=== PATIENT | female | born 1950 | race Caucasian/White ===

== ENCOUNTER 2017-03-28 18:22 | Emergency (ER) | payer MEDICARE, MEDICAID ==
[2017-03-28 19:38] VITALS: BP 146/63
--- NOTE | 2017-03-28 20:06 | UC ---
UC General HPI - HPI Summary HPI Summary: woke up this morning with rash on the right side of her neck rash feels like pressure but not painful and slightly itchy rash feels swollen today she has had some vision changes in her right eye- feels like her vision is blurry, feels slightly itchy hx of cataract surgery in right eye denies any drainage from eye , denies eye pain sees Dr Rossi complaint of intermittent headaches on the right side of head yesterday taking methotrexate for rheumotoid arthritis- missed her shot this week more fatigued than usual d/t traveling denies fever hasn't taken any medications today - History of Current Complaint Chief Complaint: UCSkin Stated Complaint: RASH ON NECK Time Seen by Provider: 03/28/17 19:52 Hx Obtained From: Patient - Allergy/Home Medications Allergies/Adverse Reactions: Allergies Allergy/AdvReac Type Severity Reaction Status Date / Time Diphenhydramine Allergy Swelling Verified 06/11/16 09:58 [From Benadryl] Of Face,Lips,& Throat Iodine Allergy Anaphylatic Verified 08/30/15 15:44 Shock Shellfish Allergy Allergy Anaphylatic Verified 08/30/15 15:44 Shock Sulfa Antibiotics Allergy Anaphylatic Verified 08/30/15 15:44 Shock Home Medications: Home Medications Diltiazem TAB* [Cardizem 30 MG Tab*] 30 mg PO DAILY 03/28/17 [History Confirmed 03/28/17] Nebivolol TAB (NF) [Bystolic TAB (NF)] 2.5 mg PO DAILY 03/28/17 [History Confirmed 03/28/17] PMH/Surg Hx/FS Hx/Imm Hx Previously Healthy: No Endocrine History: Diabetes Cardiovascular History: Atrial Fibrillation GI/ History: Gastroesophageal Reflux Neurological History: Migraine - Surgical History Surgical History: Yes Surgery Procedure, Year, and Place: left eye with implant. hands. R breast- non-cancerous. hysterectomy-Complete. bladder repair. knee and ankle surgery - Family History Known Family History: Negative: Cardiac Disease, Hypertension, Diabetes - Social History Occupation: Retired Lives: With Family Alcohol Use: None Substance Use Type: None Smoking Status (MU): Never Smoked Tobacco Review of Systems Constitutional: Negative Skin: Rash Eyes: Blurred Vision, Drainage ENT: Negative Respiratory: Negative Cardiovascular: Negative Gastrointestinal: Negative Genitourinary: Negative Motor: Negative Neurovascular: Negative Musculoskeletal: Negative Neurological: Headache Psychological: Negative All Other Systems Reviewed And Are Negative: Yes Physical Exam Triage Information Reviewed: Yes Appearance: No Pain Distress, Well-Nourished, Obese Vital Signs: Initial Vital Signs Temp 97.8 F 03/28/17 19:32 Pulse 71 03/28/17 19:32 Resp 16 03/28/17 19:32 BP 146/63 03/28/17 19:32 Pulse Ox 98 03/28/17 19:32 Vital Signs Reviewed: Yes Eyes: Positive: Conjunctiva Clear ENT: Positive: Pharynx normal, Other: - no tednress ovr temporal arteries. Negative: Nasal congestion, Tonsillar swelling, Tonsillar exudate Dental: Positive: Cervical Lymphadenopathy - right side Neck: Positive: Supple Respiratory: Positive: Lungs clear, Normal breath sounds, No respiratory distress, No accessory muscle use Cardiovascular: Positive: RRR, No Murmur, Pulses Normal Abdomen Description: Positive: Nontender, Soft Bowel Sounds: Positive: Present Musculoskeletal: Positive: No Edema Neurological: Positive: Alert, Other: - CN ll-[id number] normal, no focal deficits Psychological Exam: Normal Skin: Positive: rashes - right side of neck - 4 erythematous areas right side of neck Course/Dx - Course Course Of Treatment: exam completed. rash appears to be insect bites. right eye appears to be allergic conjunctivitis- will followup with Dr Rossi on Friday. headache resolved. no indication of temporal arteritis, no neuro deficits. discussed s/s of when to seek emergent care and she states understanding - Differential Dx - Multi-Symptom Provider Diagnoses: insect bites. aleergic conjunctivitis - Physician Notifications Discussed Patient Care With: Dr Thompson Time Discussed With Above Provider: 20:47 Discharge - Discharge Plan Condition: Stable Disposition: HOME Patient Education Materials: Insect Bite or Sting (ED), Conjunctivitis (ED) Referrals: Sherron Mendieta MD [Primary Care Provider] - Joyce Rossi MD [Medical Doctor] - Additional Instructions: Increase fluids and rest Please review your discharge instructions. please call Dr Rossi on [place] for further evalution I f you have any chnage in vision or eye pain please proceed to the emergency department for further evaluation If your symptoms do not improve please call your primary care provider or return to urgent care.
== END 2017-03-28 20:59 | disposition home or self-care (01) ==
LOC: UCCORT 18:22
DX: T14.8 Other injury of unspecified body region (principal); W57.XXXA Bitten or stung by nonvenomous insect and other nonvenomous arthropods, initial encounter; Y92.9 Unspecified place or not applicable; H10.11 Acute atopic conjunctivitis, right eye; I48.91 Unspecified atrial fibrillation; K21.9 Gastro-esophageal reflux disease without esophagitis; Z88.2 Allergy status to sulfonamides; M06.9 Rheumatoid arthritis, unspecified
CPT/HCPCS: 99212; G0463

== ENCOUNTER 2020-07-06 10:43 | Inpatient (IN) ==
[~2020-07-06 10:43] MED LIST: Buffered Lidocaine 1% SYRIN 1 ml INTRADERM ONE; Lactated Ringers 1000 ml BAG 1,000 ML IV SCH
[2020-07-06] MEDS ORDERED: ceFAZolin 2 GM PREMIX 2 GM/50 ML BAG ONE (11:33)
[2020-07-06] MEDS ORDERED: fentaNYL 250 mcg/5 ml 50 MCG/ML 5 ml VIAL (250 MCG) ONE (12:49)
[2020-07-06] MEDS ORDERED: Midazolam 2 mg/2 ml VIAL 1 mg/ml 2 ml VIAL (2 mg) ONE ×2 (12:49→13:48)
[2020-07-06] MEDS ORDERED: Lidocaine 2% PF 5 ML VIAL ONE (12:50)
[2020-07-06] MEDS ORDERED: fentaNYL 100 mcg/2 ml 50 MCG/ML VIAL ONE (12:52)
[2020-07-06] MEDS ORDERED: ROPIVACAINE 5 MG/ML 30 ML BTL (0.5%) ONE ×2 (12:58→13:09)
[2020-07-06] MEDS ORDERED: Bupivacaine 0.5% SDV PF 30ML VIAL ONE (13:29)
[2020-07-06] MEDS ORDERED: Ondansetron 4 mg VIAL 2 MG/ML 2 ml VIAL ONE (13:49)
[2020-07-06] MEDS ORDERED: diPHENhydraMINE 25 mg TAB PO PRN (14:07)
[2020-07-06] MEDS ORDERED: Ondansetron ODT 4 mg TAB 4 MG TAB PO PRN (14:07)
[2020-07-06] MEDS ORDERED: diPHENhydraMINE IV 50 MG/ML 1 ml VIAL (BENADRYL) IV PRN (14:07)
[2020-07-06] MEDS ORDERED: Lactulose 30 ml UDC PO PRN (14:07)
[2020-07-06] MEDS ORDERED: Magnesium Hydroxide LIQ 30 ML UDC PO PRN (14:07)
[2020-07-06] MEDS ORDERED: Rocuronium 50 mg VIAL 10 mg/ml 5 ml VIAL (50 mg) ONE (14:20)
[2020-07-06] MEDS ORDERED: EPHEDrine (Pressors) 50 MG/ML VIAL ONE ×2 (14:54→16:42)
[2020-07-06] MEDS ORDERED: ceFAZolin 1 GM ADVAN 1 GM in NS 0.9% 50 ML 50 ML IVPB SCH (15:00)
[2020-07-06] MEDS ORDERED: Lactated Ringers 1000 ml BAG 1,000 ML IV SCH (15:00)
[2020-07-06] MEDS ORDERED: HYDROmorphone 1 MG/1 ML SYRINGE ONE ×2 (15:06→17:43)
[2020-07-06] MEDS ORDERED: Naloxone 0.4 mg VIAL 0.4 mg/ml 1 ml VIAL IV PRN (16:19)
[2020-07-06] MEDS ORDERED: Prochlorperazine 5 mg/ml 2 ml VIAL (10 mg) IV PRN (16:19)
[2020-07-06] MEDS ORDERED: Sterile Water for Inj 10 ML ONE (16:42)
[2020-07-06] MEDS: HYDROmorphone 1 MG/1 ML SYRINGE IV PRN ×2 (17:45→17:56)
[2020-07-06] MEDS ORDERED: Prochlorperazine 5 mg/ml 2 ml VIAL (10 mg) ONE (18:44)
[2020-07-06] MEDS: oxyCODONE/Acetamin 5/325 mg TAB PO PRN (22:05)
[2020-07-06] MEDS: Magnesium Hydroxide LIQ 30 ML UDC PO SCH (22:05)
[2020-07-06] MEDS: Ondansetron 4 mg VIAL 2 MG/ML 2 ml VIAL IV PRN (22:06)
[2020-07-06] MEDS: ceFAZolin 1 GM ADVAN 1 GM in NS 0.9% 50 ML 50 ML IVPB SCH (23:53)
[2020-07-07] MEDS: ceFAZolin 1 GM ADVAN 1 GM in NS 0.9% 50 ML 50 ML IVPB SCH ×2 (08:03→15:28)
[2020-07-07] MEDS: Ondansetron 4 mg VIAL 2 MG/ML 2 ml VIAL IV PRN ×2 (08:46→14:50)
[2020-07-07] MEDS ORDERED: Potassium Chlor 20 meq TAB.ER PO SCH (09:00)
[2020-07-07] MEDS ORDERED: Nebivolol 2.5 mg TAB (NF) PO SCH (09:00)
[2020-07-07] MEDS ORDERED: Insulin ISOPH/REG 70/30 SUBCUT SCH ×2 (09:00→22:00)
[2020-07-07] MEDS ORDERED: Vitamin THERAPEUTIC TAB PO SCH (09:00)
[2020-07-07] MEDS ORDERED: FEBUXOSTAT 80 MG PO SCH (09:00)
[2020-07-07 09:01] LABS: Hematocrit 29 % (35-47); Hemoglobin 10.2 g/dL (12.0-16.0); Mean Platelet Volume 8.9 fL (7.4-10.4); Platelet Count 138 10^3/uL (150-450)
[2020-07-07] MEDS: oxyCODONE/Acetamin 5/325 mg TAB PO PRN ×2 (09:35→13:33)
[2020-07-07] MEDS: Magnesium Hydroxide LIQ 30 ML UDC PO SCH (09:56)
[2020-07-07 11:15] VITALS: BP 140/43
[2020-07-10] MEDS ORDERED: Scopolamine PATCH Remove NOTE PATCH OFF SCH (17:00)
== END 2020-07-07 18:48 | disposition home health service (06) | DRG 470 ==
LOC: AA 10:43 → SSU 21:00
PROVIDERS: ADMIT Orthopaedic Surgery Adult Reconstructive Orthopaedic Surgery; ATTEND Orthopaedic Surgery Adult Reconstructive Orthopaedic Surgery

== ENCOUNTER 2024-01-29 17:02 | Inpatient (IN) ==
[2024-01-29] MEDS: Acetaminophen IV 1 GM/100ML 1,000 MG/100 ML BAG IV ONE (17:45)
[2024-01-30] MEDS ORDERED: Gabapentin 600 mg TAB (NF) PO ONE (01:30)
[2024-01-30] MEDS ORDERED: Dextrose 50% Syringe 50 ml 25 GM/50 ML SYRINGE IV PUSH PRN (01:33)
[2024-01-30 03:23] LABS: ABS Eosinophils 0.1 10^3/uL (0.0-0.5); ABS Lymphocytes 0.9 10^3/uL (1.0-4.8); ABS Monocytes 0.6 10^3/uL (0.0-0.9); ABS Neutrophils 4.6 10^3/uL (1.5-7.6); Eosinophil % 1.9 %; Hematocrit 30.5 % (35-45); Hemoglobin 10.4 g/dL (11.5-14.3); Lymphocyte % 13.8 %; Mean Corpuscular Hemoglobin 29.2 pg (27-33); Mean Corpuscular Hgb Conc 33.9 g/dL (31-36); Mean Corpuscular Volume 86.1 fL (80-97); Mean Platelet Volume 8.7 fL (7.5-11.2); Platelet Count 145 10^3/uL (150-450); Red Blood Count 3.54 10^6/uL (3.63-4.92); Red Cell Distribution Width 14.7 % (12-17); White Blood Count 6.3 10^3/uL (3.8-11.8)
[2024-01-30 04:24] LABS: C Reactive Protein 5.45 mg/L (<8.01); Calcium 8.3 mg/dL (8.6-10.3); Creatinine, Serum 0.88 mg/dL (0.51-0.95); Magnesium 1.9 mg/dL (1.9-2.7); eGFR CKD-EPI 68.9 (>60)
[2024-01-30] MEDS ORDERED: Polyethylene Glycol 3350 17 GM PACKET PO PRN (09:06)
[2024-01-30] MEDS: Enoxaparin 40 MG/0.4 ML SYR SUBCUT SCH (11:49)
[2024-01-30] MEDS: Lidocaine PATCH 5% PATCH TRANSDERM SCH (15:25)
[2024-01-30] MEDS: methylPREDNISolone SOD SUCC 125 mg 2 ML VIAL IV ONE (15:25)
[2024-01-30] MEDS ORDERED: Gabapentin 600 mg TAB (NF) PO SCH (21:00)
[2024-01-30] MEDS: Insulin ISOPH/REG 70/30 SUBCUT SCH (21:10)
[2024-01-31] MEDS: Insulin ISOPH/REG 70/30 SUBCUT SCH (08:48)
[2024-01-31] MEDS: CMC:Febuxostat 40 mg TAB (NF) PO SCH (09:13)
[2024-01-31] MEDS: Morphine 4 MG/ML VIAL (1 ml) IV PRN (20:53)
[2024-02-01] MEDS: Senna TAB 8.6 mg TAB PO PRN (02:11)
[2024-02-01 13:31] LABS: ABS Lymphocytes 0.6 10^3/uL (1.0-4.8); ABS Monocytes 0.6 10^3/uL (0.0-0.9); ABS Neutrophils 10.8 10^3/uL (1.5-7.6); ABS Nucleated RBC 0.01 10^3/ul; Eosinophil % 0.4 %; Hematocrit 31.2 % (35-45); Hemoglobin 10.3 g/dL (11.5-14.3); Lymphocyte % 4.6 %; Mean Corpuscular Hemoglobin 28.4 pg (27-33); Mean Corpuscular Hgb Conc 33.1 g/dL (31-36); Mean Corpuscular Volume 85.8 fL (80-97); Mean Platelet Volume 8.5 fL (7.5-11.2); Nucleated Red Blood Cells % 0.1 %/100WBC (0.0-0.8); Platelet Count 166 10^3/uL (150-450); Red Blood Count 3.63 10^6/uL (3.63-4.92); Red Cell Distribution Width 14.6 % (12-17)
[2024-02-01 14:05] LABS: Calcium 9.2 mg/dL (8.6-10.3); Creatinine, Serum 0.98 mg/dL (0.51-0.95); Magnesium 2.1 mg/dL (1.9-2.7); Potassium 4.5 mmol/L (3.5-5.0); eGFR CKD-EPI 60.6 (>60)
[2024-02-01] MEDS: Furosemide 40 mg/4 ml IV VIAL IV SLOW PU ONE (15:30)
[2024-02-01 15:45] LABS: C Reactive Protein 5.67 mg/L (<8.01)
[2024-02-01] MEDS: RISANKIZUMAB RZAA 150 MG/ML SUBCUT ONE (18:12)
[2024-02-02 14:00] VITALS: BP 111/94
== END 2024-02-02 16:35 | disposition home or self-care (01) | DRG 563 ==
LOC: ED 17:02 → EDHOLD 17:02 → SUATTDRO 01-30 09:07 → MED 01-30 15:01 → SUATTDRO 02-01 09:51
PROVIDERS: ADMIT Internal Medicine; ATTEND Hospitalist